=== PATIENT | male | born 2000 | race Caucasian/White ===

== ENCOUNTER 2022-12-31 21:19 | Inpatient (IN) ==
[2022-12-31 22:45] LABS: Appearance Urine Clear (Clear); Bilirubin Urine Negative (Negative); Blood Urine Negative (Negative); Color Urine Yellow; Glucose Urine UA Negative (Negative); Ketones Urine Negative (Negative); Leukocyte Esterase Urine Negative (Negative); Nitrite Urine Negative (Negative); Protein Urine Negative (Negative); Specific Gravity Urine 1.028 (1.000-1.030); Urobilinogen Urine Negative (Negative); pH Urine 6.5 (4.5-7.5)
[2022-12-31] MEDS ORDERED: KETOROLAC TROMETHAMINE 15 MG/ML VIAL IV ONE (23:05)
[2022-12-31] MEDS ORDERED: SODIUM CHLORIDE 0.9% 1000ML 1,000 ML IV ONE (23:05)
--- NOTE | 2022-12-31 23:33 | Emergency Department Note ---
Impression & Plan Hemoperitoneum, Post-operative infection ED Provider Note NAME: CHRISTIAN KASPER AGE: 22 SEX: M : 2000 ARRIVES VIA: Walk-In INFORMANT: Patient ED PROVIDER(S): Vik Morrison DO CHIEF COMPLAINT: abdominal pain HPI: Patient is a 22-year-old male who presents the ER for lower abdominal pain. He notes he had an appendectomy in [place] performed 2 weeks ago. Over the p ast 4 days he has been having abdominal pain which has been getting worse in the lower pelvic region. He notes its worse with urination. She denies any drainage or discharge. No headache or change in vision. No chest pain or shortness of breath. No other exacerbating or remitting factors. He notes some pain in his abdomen when he urinates. PAST MEDICAL HISTORY:See Below PAST SURGICAL HISTORY:See Below FAMILY HISTORY:See Below SOCIAL HISTORY:See Below HOME MEDICATIONS:See Below ALLERGIES:See Below VITALS:See Below PHYSICAL EXAMINATION: GENERAL: Sitting up in bed, alert, well appearing, well nourished, no distress, non-toxic EYE EXAM: normal conjunctiva. OROPHARYNX: no exudate, no erythema, lips, buccal mucosa, and tongue normal and mucous membranes are moist NECK: supple, no nuchal rigidity, no adenopathy, non-tender LUNGS: Clear to auscultation. Normal chest wall mechanics HEART: no murmurs, S1 normal and S2 normal ABDOMEN: abdomen soft, TTP in lower Abd, normo-active bowel sounds, no masses, no rebound or guarding. UPPER EXTREMITIES: upper extremities are grossly normal. LOWER EXTREMITIES: No pitting edema. NEURO EXAM: Normal sensorium, cranial nerves II-XII grossly intact, normal speech, no gross weakness of arms, no gross weakness of legs. MEDICAL DECISION MAKING: Patient is a 22-year-old male who presents ER for abdominal pain postop. Getting worse for the past 4 days. History of appendectomy 2 weeks ago. IV was established blood work was obtained. Labs show no significant leukocytosis. Mild anemia 12.2. BMP along with LFTs bilirubin and lipase was unremarkable. UA was negative. COVID-negative. He was given IV fluids and Zofran. He was updated bedside. He was given Zosyn following a CT abdomen pelvis which confirmed a phlegmon along with a small amount of hemoperitoneum. This was discussed with Dr. Shira Mendosa who recommended admission and admit this patient to her service. He was updated at bedside. Triage Nursing notes reviewed. Limited review of prior medical records performed Vital Signs: reviewed and remarkable for no significant abnormalities Differential diagnosis: Differential diagnoses includes but is not limited to gastritis, peptic ulcer disease, GERD, gallbladder disease, pancreatitis, small bowel obstruction, appendicitis, diverticulitis, hernia, urinary tract infection, torsion, perforation, trauma, infectious. ER treatment provided: See below Diagnostics interpreted by me include EKG and cardiac monitoring as listed below: -Cardiac Monitoring: An order was placed for continuous cardiac monitoring. The monitor shows a rate of 70 with sinus rhythm. -ECG: none -Laboratory studies:Interpreted by me as stated above in MDM and shown below. Imaging studies: Xrays: As interpreted by me:none CTs show: CT abdomen pelvis as described above Consultation(s): As described in MDM Procedures:none Critical Care: None Past Med/Surg History Medical History No pertinent past medical history Surgical History No pertinent past surgical history Social History Smoking Status: Current some day smoker Tobacco Type: E-cigarettes / Vaping Preferred Language: [place] Feels Safe at Home: Yes Allergies Allergies Allergy/AdvReac Type Severity Reaction Status Date / Time No Known Allergies Allergy Verified 12/31/22 23:05 Home Meds Home Medications Medication Instructions Recorded Confirmed acetaminophen 500 mg tablet 500 mg PO DIRECTED PRN Pain 12/31/22 12/31/22 (Tylenol Extra Strength) Results & Data (ED) Vital Signs Vital Signs - 24 hr 12/31/22 21:34 01/01/23 00:34 Temperature 36.9 C Temperature Source Temporal Artery Scan Pulse Rate 102 H Pulse Rate [Right Finger] 69 Pulse Rhythm [Right Finger] Regular Respiratory Rate 18 16 Respiratory Effort / Characteristics Non-Labored Spontaneous Non-Labored Spontaneous Respiratory Depth Normal Normal Respiratory Pattern Regular Blood Pressure 159/93 H Blood Pressure [Right Arm] 128/71 Blood Pressure Mean 115 Blood Pressure Mean [Right Arm] 90 Pulse Oximetry 100 100 Oxygen Delivery Method Room Air Room Air Sepsis Recent Fever Within 48 Hours No Sepsis New/Unexplained Change in Mental Status No Sepsis Action Taken by Nursing No Action Required Laboratory Data 12/31/22 21:39 12/31/22 21:39 Lab Results 12/31/22 12/31/22 12/31/22 Range/Units 21:34 21:39 21:39 WBC 9.46 (4.8-10.8) K/ul RBC 4.11 L (4.70-6.10) M/uL Hgb 12.2 L (14.0-18.0) g/dl Hct 37.3 L (42.0-52.0) % MCV 90.8 (80.0-100.0) fL MCH 29.7 (25.0-34.0) pg MCHC 32.7 (32.0-36.0) g/dL RDW Std Deviation 41.3 (36.4-46.3) fL RDW Coeff of Luma 12.6 (11.5-14.5) % Plt Count 352 (130-400) K/uL MPV 11.4 (9.4-12.4) fL Immature Gran % (Auto) 0.1 % Neut % (Auto) 71.7 % Lymph % (Auto) 17.3 % [place] % (Auto) 8.5 % Eos % (Auto) 1.9 % Baso % (Auto) 0.5 % Neut # (Auto) 6.78 H (1.40-6.50) K/uL Lymph # (Auto) 1.64 (1.2-3.4) K/uL [place] # (Auto) 0.80 H (0.11-0.59) K/uL Eos # (Auto) 0.18 (0-0.50) K/uL Baso # (Auto) 0.05 (0-0.2) K/uL Immature Gran # (Auto) 0.01 (0.01-0.20) K/uL Sodium 139 (136-145) mmol/L Potassium 3.7 (3.5-5.1) mmol/L Chloride 102 (98-107) mmol/L Carbon Dioxide 26 (21-32) mmol/L Anion Gap 11 (3-11) BUN 19 (6-23) mg/dl Creatinine 0.81 (0.6-1.4) mg/dl Est Cr Clr Drug Dosing 158.3 ml/min Est GFR ( Amer) 147.2 ml/min Est GFR (Non-Af Amer) 127.0 ml/min BUN/Creatinine Ratio 23.5 H (10-20) Glucose 85 (70-99(Fasting)) mg/dl Calcium 9.9 (8.6-10.3) mg/dl Total Bilirubin 0.6 (0.2-1.0) mg/dl AST 20 (13-39) U/L ALT 25 (7-52) U/L Alkaline Phosphatase 73 (34-104) U/L Total Protein 8.4 H (6.0-8.3) gm/dl Albumin 4.8 (3.4-5.0) gm/dl Globulin 3.6 (2.5-4.0) gm/dl Albumin/Globulin Ratio 1.3 (0.9-2) Lipase 12 (11-82) U/L Urine Color Yellow Urine Appearance Clear (Clear) Urine pH 6.5 (4.5-7.5) Ur Specific [place] 1.028 (1.000-1.030) Urine Protein Negative (Negative) Urine Glucose (UA) Negative (Negative) Urine Ketones Negative (Negative) Urine Blood Negative (Negative) Urine Nitrite Negative (Negative) Urine Bilirubin Negative (Negative) Urine Urobilinogen Negative (Negative) Ur Leukocyte Esterase Negative (Negative) Administered Medications Discontinued Medications Sodium Chloride (Nss 1000ml) 1,000 mls @ 999 mls/hr IV .Q1H1M ONE Stop: 01/01/23 00:05 Last Infusion: 01/01/23 00:54 Dose: 0 mls/hr Documented By: Admin: 12/31/22 23:13 Dose: 999 mls/hr Documented By: KEYA Piperacillin Sod/Tazobactam Sod (Zosyn) 4.5 gm in 120 mls @ 240 mls/hr IV NOW ONE Stop: 01/01/23 01:51 Last Admin: 01/01/23 02:07 Dose: 240 mls/hr Documented By: KEYA Ioversol (Optiray 350 100ml) 100 ml IV ONCE ONE Stop: 01/01/23 00:28 Last Admin: 01/01/23 00:27 Dose: 86 ml Documented By: ONEIL Ketorolac Tromethamine (Ketorolac Tromethamine 15 Mg/Ml Vial) 10 mg IV NOW ONE Stop: 12/31/22 23:06 Last Admin: 12/31/22 23:10 Dose: 10 mg Documented By: KEYA Imaging Data Radiologist's Impression: Abdomen/Pelvis CT 12/31/22 23:05 CR Exam(s): CT ABDOMEN + PELVIS With Contrast IV Amt: 86 ML OPTIRAY 350 EXAM: CT Abdomen and Pelvis With Intravenous Contrast CLINICAL HISTORY: Reason for exam: lower pelvic pain s/p appy. TECHNIQUE: Axial computed tomography images of the abdomen and pelvis with intravenous contrast. CTDI is 7 mGy and DLP is 378.67 mGy-cm. Automated exposure control was utilized for the study. A dose lowering technique was utilized adhering to the principles of ALARA. CONTRAST: Patient received 86 ML OPTIRAY 350 of IV contrast COMPARISON: None. FINDINGS: Lung bases: Unremarkable. No mass. No consolidation. ABDOMEN: Liver: Unremarkable. No mass. Gallbladder and bile ducts: The gallbladder is contracted. No calcified stones. No ductal dilation. Pancreas: Unremarkable. No mass. No ductal dilation. Spleen: Unremarkable. No splenomegaly. Adrenals: Unremarkable. No mass. Kidneys and ureters: Unremarkable. No solid mass. No hydronephrosis. Stomach and bowel: Unremarkable. No obstruction. No mucosal thickening. PELVIS: Appendix: No findings to suggest acute appendicitis. Bladder: Unremarkable. No mass. Reproductive: Unremarkable as visualized. ABDOMEN and PELVIS: Intraperitoneal space: There is moderate to large free fluid in the pelvis of high density suggestive of hemorrhagic versus infectious etiology. There are inflammatory/phlegmonous changes at the level of the cecum suggestive of known history of appendicitis. There are surgical clips/sutures by the cecum consistent with recent surgery. No free air. Bones/joints: No acute fracture. No dislocation. Soft tissues: Unremarkable. Vasculature: Unremarkable. No abdominal aortic aneurysm. Lymph nodes: Unremarkable. No enlarged lymph nodes. IMPRESSION: 1. Complex high density free fluid in the pelvis raising the concern of hemorrhagic fluid versus infectious process. 2. Phlegmonous change in the right lower quadrant with questionable status post appendectomy. No drainable abscess seen. Communications: Call Doctor Other Electronically signed by: Clara Olsen MD 01/01/23 01:12 AM Discharge Plan Visit Data Chief Complaint: Urinary Symptoms Stated Complaint: BURNING WHEN URINATING,CRAMPS IN STOMACH ED Provider: Vik Morrison Discharge Problem: Hemoperitoneum, Post-operative infection Forms Stand Alone Forms: My [facility] Prescriptions Prescriptions: No Action acetaminophen [Tylenol Extra Strength] 500 mg Tablet 500 mg PO DIRECTED PRN (Reason: Pain) Referrals Referrals: [facility] [Primary Care Provider] -
[2022-12-31 23:41] LABS: Basophils # (auto) 0.05 K/uL (0-0.2); Basophils % (auto) 0.5 %; Eosinophils # (auto) 0.18 K/uL (0-0.50); Eosinophils % (auto) 1.9 %; Hematocrit (blood only) 37.3 % (42.0-52.0); Hemoglobin 12.2 g/dl (14.0-18.0); Immature Granulocytes # (auto) 0.01 K/uL (0.01-0.20); Immature Granulocytes % (auto) 0.1 %; Lymphocytes # (auto) 1.64 K/uL (1.2-3.4); Lymphocytes % (auto) 17.3 %; Mean Corpuscular Hemoglobin 29.7 pg (25.0-34.0); Mean Corpuscular Hgb Conc 32.7 g/dL (32.0-36.0); Mean Corpuscular Volume 90.8 fL (80.0-100.0); Mean Platelet Volume 11.4 fL (9.4-12.4); Monocytes % (auto) 8.5 %; Neutrophils # (auto) 6.78 K/uL (1.40-6.50); Neutrophils % (auto) 71.7 %; Platelet Count 352 K/uL (130-400); RDW Coefficient of Variation 12.6 % (11.5-14.5); RDW Standard Deviation 41.3 fL (36.4-46.3); Red Blood Count 4.11 M/uL (4.70-6.10); White Blood Count 9.46 K/ul (4.8-10.8)
[2022-12-31 23:56] LABS: Albumin Globulin Ratio 1.3 (0.9-2); Albumin Level 4.8 gm/dl (3.4-5.0); BUN Creatinine Ratio 23.5 (10-20); Bilirubin,Total 0.6 mg/dl (0.2-1.0); Calcium 9.9 mg/dl (8.6-10.3); Creatinine Clr Calc Pharmacy 158.3 ml/min; Est GFR (African American) 147.2 ml/min; Globulin 3.6 gm/dl (2.5-4.0); Potassium 3.7 mmol/L (3.5-5.1); Total Protein 8.4 gm/dl (6.0-8.3)
[2023-01-01] MEDS ORDERED: OPTIRAY 350 100ml IV ONE (00:27)
--- NOTE | 2023-01-01 01:13 | CT Scan Report ---
Exam(s): CT ABDOMEN + PELVIS With Contrast IV Amt: 86 ML OPTIRAY 350 EXAM: CT Abdomen and Pelvis With Intravenous Contrast CLINICAL HISTORY: Reason for exam: lower pelvic pain s/p appy. TECHNIQUE: Axial computed tomography images of the abdomen and pelvis with intravenous contrast. CTDI is 7 mGy and DLP is 378.67 mGy-cm. Automated exposure control was utilized for the study. A dose lowering technique was utilized adhering to the principles of ALARA. CONTRAST: Patient received 86 ML OPTIRAY 350 of IV contrast COMPARISON: None. FINDINGS: Lung bases: Unremarkable. No mass. No consolidation. ABDOMEN: Liver: Unremarkable. No mass. Gallbladder and bile ducts: The gallbladder is contracted. No calcified stones. No ductal dilation. Pancreas: Unremarkable. No mass. No ductal dilation. Spleen: Unremarkable. No splenomegaly. Adrenals: Unremarkable. No mass. Kidneys and ureters: Unremarkable. No solid mass. No hydronephrosis. Stomach and bowel: Unremarkable. No obstruction. No mucosal thickening. PELVIS: Appendix: No findings to suggest acute appendicitis. Bladder: Unremarkable. No mass. Reproductive: Unremarkable as visualized. ABDOMEN and PELVIS: Intraperitoneal space: There is moderate to large free fluid in the pelvis of high density suggestive of hemorrhagic versus infectious etiology. There are inflammatory/phlegmonous changes at the level of the cecum suggestive of known history of appendicitis. There are surgical clips/sutures by the cecum consistent with recent surgery. No free air. Bones/joints: No acute fracture. No dislocation. Soft tissues: Unremarkable. Vasculature: Unremarkable. No abdominal aortic aneurysm. Lymph nodes: Unremarkable. No enlarged lymph nodes. IMPRESSION: 1. Complex high density free fluid in the pelvis raising the concern of hemorrhagic fluid versus infectious process. 2. Phlegmonous change in the right lower quadrant with questionable status post appendectomy. No drainable abscess seen. Communications: Call Doctor Other Electronically signed by: Clara Olsen MD 01/01/23 01:12 AM
[2023-01-01] MEDS ORDERED: PIPERACILLIN/TAZOBACTAM 4.5 GM/120 ML BAG IV ONE (01:22)
[2023-01-01] MEDS ORDERED: HYDROCODONE/ACETAMOPHEN 5/325MG TAB PO PRN ×2 (04:18)
[2023-01-01] MEDS ORDERED: IBUPROFEN 200 MG TAB PO PRN (04:18)
[2023-01-01] MEDS ORDERED: ONDANSETRON INJ 2 MG/ML 2 ML VIAL IV PRN (04:18)
[2023-01-01] MEDS ORDERED: MoRPHine SULFATE 2 MG/ML CARP IV PRN (04:18)
[2023-01-01] MEDS ORDERED: MoRPHine SULFATE 4 MG/ML 1 ML CARP\\VIAL IV PRN (04:18)
[2023-01-01] MEDS ORDERED: FLUARIX QUADRIVALENT 0.5 ML SYR IM ONE (04:36)
[2023-01-01] MEDS: LACTATED RINGER'S 1,000 ML IV SCH ×2 (04:40→14:51)
[2023-01-01] MEDS: PIPERACILLIN/TAZOBACTAM 3.375 GM in DEXTROSE 5% 100 ML IV SCH ×3 (09:26→23:50)
--- NOTE | 2023-01-01 10:30 | History & Physical Report ---
Date of Service January 01, 2023 Assessment & Plan (1) Post-operative infection: (2) Hemoperitoneum: Plan 22 year-old male who is 2.5 weeks s/p laparoscopic appendectomy in [place] presented to ED last evening with increasing abdominal pain for the last 4 days with no associated fevers, nausea, vomiting, changes in bowel habits. Normal wbc, afebrile, hemodynamically stable. CT scan showing phlegmonous changes of the cecum without drainable fluid collection/abscess, moderate free fluid in pelvis which could be hemoperitoneum vs infectious fluid. Abdominal exam with tenderness in the suprapubic and RLQ with no rigidity, rebound, or peritonitis Plan: Continue IV antibiotics Pain management as needed okay for low fiber diet, go slow encouraged ambulating hallway repeat am labs scds for dvt prophylaxis Dr. Le has seen and examined patient agrees with above Admission and Anticipated Discharge Date Admission Date: January 01, 2023 History of Present Illness Chief Complaint: Abdominal pain Primary Care Provider: [facility] Alec is a 22 year-old male who presented to emergency department with 4 day history of increasing abdominal pain who is currently 2.5 weeks s/p laparoscopic appendectomy in [place]. States he was admitted to hospital for 2 days following surgery and was doing well. Noticed some abdominal pain with pressure while urinating and pain continued to increase. Pain mostly with movement or urinating. Denies of any fever, chills, nausea, vomiting, abdominal bloating, difficulty urinating, blood in urine, difficulty moving bowels, constipation, diarrhea, or blood in stools. ER work-up included labs which showed no leukcoytosis. CT scan of abdomen/pelvis with IV contrast showing phlegmonous changes of the cecum with no drainable abscess and moderate fluid in pelvis which could be hemoperitoneum vs infectious etiology. No pneumoperitoneum. States he is feeling okay this morning, pain only with palpation but not pain at rest. No fevers, no nausea, vomiting. Allergies Allergy/AdvReac Type Severity Reaction Status Date / Time No Known Allergies Allergy Verified 12/31/22 23:05 Home Medications Medication Instructions Recorded Confirmed Type acetaminophen 500 mg tablet 500 mg PO DIRECTED PRN Pain 12/31/22 12/31/22 History (Tylenol Extra Strength) Past Med/Surg History Medical History (Updated 01/01/23 @ 02:20 by Vik M Morrison, DO) No pertinent past medical history Surgical History (Updated 01/01/23 @ 12:24 by Cydney Brannon PA-C) History of dental surgery History of laparoscopic appendectomy Social History Smoking Status: Never smoker Tobacco Type: E-cigarettes / Vaping Second Hand Exposure: No; Do You Dip or Chew Tobacco: No; Tobacco Cessation Education Requested by Patient: No Hx Alcohol Use: Yes Alcohol type: beer Hx Substance Use: No Preferred Language: Upper Sorbian Communication Ability: Effective Diagnostics Tech Required: No Beliefs That Will Affect Care: None Current Living Situation: Parent and Family Other Information That Helps Us Care for You: No Feels Safe at Home: Yes Safety Concerns: Feels Safe At This Time Assistive Devices: None Physical Exam Constitutional: WD/WN, vitals as above + thin, cooperative and comfortable; no acute distress and not ill appearing Neck: normal visual inspection and trachea midline Respiratory: normal respiratory effort, lungs clear to auscultation Cardiovascular: RRR, no murmur, no edema Gastrointestinal (Abdomen): Inspection/Auscultation: abdomen normal to inspection and + abdominal surgical incision (clean/dry/intact, steri strips present); abdomen not distended Percussion/Palpation: + abdomen tender (suprapubic and RLQ) and abdomen soft; no guarding, abdomen not rigid and abdomen not firm Skin: no rashes, warm and dry Psychiatric: A+Ox3, euthymic affect Results & Data Results & Data Vital Signs (Past 12 Hours) Vital Signs Temp Pulse Pulse Resp BP BP Pulse Ox 01/01/23 07:44 36.8 C 56 L 20 100/60 99 01/01/23 05:48 37.2 C 76 16 124/78 99 01/01/23 04:48 36.8 C 79 16 118/64 99 01/01/23 04:18 36.9 C 86 16 116/86 99 01/01/23 04:15 36.6 C 66 16 109/67 97 01/01/23 04:01 75 14 111/65 98 01/01/23 03:19 65 97 01/01/23 01:50 60 16 104/62 98 01/01/23 02:57 60 01/01/23 00:34 69 16 128/71 100 O2 Del Method 01/01/23 07:44 Room Air 01/01/23 05:48 Room Air 01/01/23 04:48 Room Air 01/01/23 04:18 Room Air 01/01/23 04:15 Room Air 01/01/23 04:01 Room Air 01/01/23 03:19 Room Air 01/01/23 01:50 Room Air 01/01/23 02:57 01/01/23 00:34 Room Air Laboratory Results 01/01/23 12/31/22 12/31/22 Range/Units 02:09 21:39 21:39 WBC 9.46 (4.8-10.8) K/ul RBC 4.11 L (4.70-6.10) M/uL Hgb 12.2 L (14.0-18.0) g/dl Hct 37.3 L (42.0-52.0) % MCV 90.8 (80.0-100.0) fL MCH 29.7 (25.0-34.0) pg MCHC 32.7 (32.0-36.0) g/dL RDW Std Deviation 41.3 (36.4-46.3) fL RDW Coeff of Luma 12.6 (11.5-14.5) % Plt Count 352 (130-400) K/uL MPV 11.4 (9.4-12.4) fL Immature Gran % (Auto) 0.1 % Neut % (Auto) 71.7 % Lymph % (Auto) 17.3 % [place] % (Auto) 8.5 % Eos % (Auto) 1.9 % Baso % (Auto) 0.5 % Neut # (Auto) 6.78 H (1.40-6.50) K/uL Lymph # (Auto) 1.64 (1.2-3.4) K/uL [place] # (Auto) 0.80 H (0.11-0.59) K/uL Eos # (Auto) 0.18 (0-0.50) K/uL Baso # (Auto) 0.05 (0-0.2) K/uL Immature Gran # (Auto) 0.01 (0.01-0.20) K/uL Sodium 139 (136-145) mmol/L Potassium 3.7 (3.5-5.1) mmol/L Chloride 102 (98-107) mmol/L Carbon Dioxide 26 (21-32) mmol/L Anion Gap 11 (3-11) BUN 19 (6-23) mg/dl Creatinine 0.81 (0.6-1.4) mg/dl Est Cr Clr Drug Dosing 158.3 ml/min Est GFR ( Amer) 147.2 ml/min Est GFR (Non-Af Amer) 127.0 ml/min BUN/Creatinine Ratio 23.5 H (10-20) Glucose 85 (70-99(Fasting)) mg/dl Calcium 9.9 (8.6-10.3) mg/dl Total Bilirubin 0.6 (0.2-1.0) mg/dl AST 20 (13-39) U/L ALT 25 (7-52) U/L Alkaline Phosphatase 73 (34-104) U/L Total Protein 8.4 H (6.0-8.3) gm/dl Albumin 4.8 (3.4-5.0) gm/dl Globulin 3.6 (2.5-4.0) gm/dl Albumin/Globulin Ratio 1.3 (0.9-2) Lipase 12 (11-82) U/L Urine Color Urine Appearance (Clear) Urine pH (4.5-7.5) Ur Specific [place] (1.000-1.030) Urine Protein (Negative) Urine Glucose (UA) (Negative) Urine Ketones (Negative) Urine Blood (Negative) Urine Nitrite (Negative) Urine Bilirubin (Negative) Urine Urobilinogen (Negative) Ur Leukocyte Esterase (Negative) SARS-CoV-2, RNA, NAAT NEGATIVE (NEGATIVE) 12/31/22 Range/Units 21:34 WBC (4.8-10.8) K/ul RBC (4.70-6.10) M/uL Hgb (14.0-18.0) g/dl Hct (42.0-52.0) % MCV (80.0-100.0) fL MCH (25.0-34.0) pg MCHC (32.0-36.0) g/dL RDW Std Deviation (36.4-46.3) fL RDW Coeff of [place] (11.5-14.5) % Plt Count (130-400) K/uL MPV (9.4-12.4) fL Immature Gran % (Auto) % Neut % (Auto) % Lymph % (Auto) % [place] % (Auto) % Eos % (Auto) % Baso % (Auto) % Neut # (Auto) (1.40-6.50) K/uL Lymph # (Auto) (1.2-3.4) K/uL [place] # (Auto) (0.11-0.59) K/uL Eos # (Auto) (0-0.50) K/uL Baso # (Auto) (0-0.2) K/uL Immature Gran # (Auto) (0.01-0.20) K/uL Sodium (136-145) mmol/L Potassium (3.5-5.1) mmol/L Chloride (98-107) mmol/L Carbon Dioxide (21-32) mmol/L Anion Gap (3-11) BUN (6-23) mg/dl Creatinine (0.6-1.4) mg/dl Est Cr Clr Drug Dosing ml/min Est GFR ( Amer) ml/min Est GFR (Non-Af Amer) ml/min BUN/Creatinine Ratio (10-20) Glucose (70-99(Fasting)) mg/dl Calcium (8.6-10.3) mg/dl Total Bilirubin (0.2-1.0) mg/dl AST (13-39) U/L ALT (7-52) U/L Alkaline Phosphatase (34-104) U/L Total Protein (6.0-8.3) gm/dl Albumin (3.4-5.0) gm/dl Globulin (2.5-4.0) gm/dl Albumin/Globulin Ratio (0.9-2) Lipase (11-82) U/L Urine Color Yellow Urine Appearance Clear (Clear) Urine pH 6.5 (4.5-7.5) Ur Specific [place] 1.028 (1.000-1.030) Urine Protein Negative (Negative) Urine Glucose (UA) Negative (Negative) Urine Ketones Negative (Negative) Urine Blood Negative (Negative) Urine Nitrite Negative (Negative) Urine Bilirubin Negative (Negative) Urine Urobilinogen Negative (Negative) Ur Leukocyte Esterase Negative (Negative) SARS-CoV-2, RNA, NAAT (NEGATIVE) Diagnostic Findings Exam(s): CT ABDOMEN + PELVIS With Contrast IV Amt: 86 ML OPTIRAY 350 EXAM: CT Abdomen and Pelvis With Intravenous Contrast CLINICAL HISTORY: Reason for exam: lower pelvic pain s/p appy. TECHNIQUE: Axial computed tomography images of the abdomen and pelvis with intravenous contrast. CTDI is 7 mGy and DLP is 378.67 mGy-cm. Automated exposure control was utilized for the study. A dose lowering technique was utilized adhering to the principles of ALARA. CONTRAST: Patient received 86 ML OPTIRAY 350 of IV contrast COMPARISON: None. FINDINGS: Lung bases: Unremarkable. No mass. No consolidation. ABDOMEN: Liver: Unremarkable. No mass. Gallbladder and bile ducts: The gallbladder is contracted. No calcified stones. No ductal dilation. Pancreas: Unremarkable. No mass. No ductal dilation. Spleen: Unremarkable. No splenomegaly. Adrenals: Unremarkable. No mass. Kidneys and ureters: Unremarkable. No solid mass. No hydronephrosis. Stomach and bowel: Unremarkable. No obstruction. No mucosal thickening. PELVIS: Appendix: No findings to suggest acute appendicitis. Bladder: Unremarkable. No mass. Reproductive: Unremarkable as visualized. ABDOMEN and PELVIS: Intraperitoneal space: There is moderate to large free fluid in the pelvis of high density suggestive of hemorrhagic versus infectious etiology. There are inflammatory/phlegmonous changes at the level of the cecum suggestive of known history of appendicitis. There are surgical clips/sutures by the cecum consistent with recent surgery. No free air. Bones/joints: No acute fracture. No dislocation. Soft tissues: Unremarkable. Vasculature: Unremarkable. No abdominal aortic aneurysm. Lymph nodes: Unremarkable. No enlarged lymph nodes. IMPRESSION: 1. Complex high density free fluid in the pelvis raising the concern of hemorrhagic fluid versus infectious process. 2. Phlegmonous change in the right lower quadrant with questionable status post appendectomy. No drainable abscess seen. Code Status & VTE Plan VTE Prophylaxis Plan VTE Prophylaxis will be ordered: Yes Supervising Physician Co-Signing Physician Notes I have seen and examined the patient personally and agree with the above assessment and plan. Right lower quadrant phlegmonous change without abscess 2 weeks status post laparoscopic appendectomy in [place]. We will treat him with IV antibiotics and bowel rest. We will observe for now. No surgical interventions required at this time.
[2023-01-02] MEDS: LACTATED RINGER'S 1,000 ML IV SCH ×2 (00:49→10:05)
[2023-01-02] MEDS: PIPERACILLIN/TAZOBACTAM 3.375 GM in DEXTROSE 5% 100 ML IV SCH ×2 (07:35→15:59)
[2023-01-02 07:57] LABS: Basophils # (auto) 0.04 K/uL (0-0.2); Basophils % (auto) 0.6 %; Eosinophils # (auto) 0.25 K/uL (0-0.50); Eosinophils % (auto) 3.4 %; Hematocrit (blood only) 31.5 % (42.0-52.0); Hemoglobin 10.4 g/dl (14.0-18.0); Immature Granulocytes # (auto) 0.02 K/uL (0.01-0.20); Immature Granulocytes % (auto) 0.3 %; Lymphocytes # (auto) 1.79 K/uL (1.2-3.4); Lymphocytes % (auto) 24.7 %; Mean Corpuscular Hemoglobin 29.4 pg (25.0-34.0); Mean Platelet Volume 11.2 fL (9.4-12.4); Monocytes # (auto) 0.68 K/uL (0.11-0.59); Monocytes % (auto) 9.4 %; Neutrophils # (auto) 4.48 K/uL (1.40-6.50); Neutrophils % (auto) 61.6 %; Platelet Count 269 K/uL (130-400); RDW Coefficient of Variation 12.4 % (11.5-14.5); RDW Standard Deviation 40.5 fL (36.4-46.3); Red Blood Count 3.54 M/uL (4.70-6.10); White Blood Count 7.26 K/ul (4.8-10.8)
[2023-01-02 08:18] LABS: Calcium 9.2 mg/dl (8.6-10.3); Creatinine Clr Calc Pharmacy 154.5 ml/min; Est GFR (African American) 145.8 ml/min; Est GFR (Non-African American) 125.8 ml/min; Potassium 4.2 mmol/L (3.5-5.1)
--- NOTE | 2023-01-02 11:44 | Surgery Progress Note ---
Date of Service January 02, 2023 Assessment & Plan (1) Post-operative infection: (2) Hemoperitoneum: Plan 22 year-old male who is 2.5 weeks s/p laparoscopic appendectomy in [place] presented to ED with increasing abdominal pain for 4 days with no associated fevers, nausea, vomiting, changes in bowel habits. Normal wbc, afebrile, hemodynamically stable. CT scan showing phlegmonous changes of the cecum without drainable fluid collection/abscess, moderate free fluid in pelvis which could be hemoperitoneum vs infectious fluid. Abdominal exam with tenderness in the suprapubic and RLQ with no rigidity, rebound, or peritonitis Plan: Continue IV antibiotics Pain management as needed okay for low fiber diet, go slow encouraged ambulating hallway repeat am labs scds for dvt prophylaxis [facility] surgery covering this weekend Dr. Le has seen and examined patient agrees with above Admission and Anticipated Discharge Date Admission Date: January 01, 2023 Supervising Physician Co-Signing Physician Notes I have seen and examined the patient personally and agree with the above assessment and plan. Continue IV antibiotics. He is slowly improving. Plan for switching to p.o. antibiotics and discharge home in the next day or 2. Subjective feeling about the same pain about the same No n,v tolerating diet still abdominal pressure with urinating but no burning on urination no fevers or chills ambulated hallway yesterday a few times Physical Exam Constitutional: WD/WN, vitals as above cooperative and comfortable; no acute distress, not ill appearing, not diaphoretic and not lethargic Gastrointestinal (Abdomen): Inspection/Auscultation: abdomen normal to inspection and + abdominal surgical incision (laparoscopic incisions); abdomen not distended Percussion/Palpation: + abdomen tender (RLQ and suprapubic) and abdomen soft; no guarding and abdomen not rigid Skin: no rashes, warm and dry Psychiatric: A+Ox3, euthymic affect Results & Data Vital Signs (Past 12 Hours) Vital Signs Temp Pulse Resp BP Pulse Ox O2 Del Method 01/02/23 09:20 36.7 C 61 18 98/60 L 98 Room Air Laboratory Results 01/02/23 01/02/23 Range/Units 07:24 07:24 WBC 7.26 (4.8-10.8) K/ul RBC 3.54 L (4.70-6.10) M/uL Hgb 10.4 L (14.0-18.0) g/dl Hct 31.5 L (42.0-52.0) % MCV 89.0 (80.0-100.0) fL MCH 29.4 (25.0-34.0) pg MCHC 33.0 (32.0-36.0) g/dL RDW Std Deviation 40.5 (36.4-46.3) fL RDW Coeff of Luma 12.4 (11.5-14.5) % Plt Count 269 (130-400) K/uL MPV 11.2 (9.4-12.4) fL Immature Gran % (Auto) 0.3 % Neut % (Auto) 61.6 % Lymph % (Auto) 24.7 % [place] % (Auto) 9.4 % Eos % (Auto) 3.4 % Baso % (Auto) 0.6 % Neut # (Auto) 4.48 (1.40-6.50) K/uL Lymph # (Auto) 1.79 (1.2-3.4) K/uL [place] # (Auto) 0.68 H (0.11-0.59) K/uL Eos # (Auto) 0.25 (0-0.50) K/uL Baso # (Auto) 0.04 (0-0.2) K/uL Immature Gran # (Auto) 0.02 (0.01-0.20) K/uL Sodium 139 (136-145) mmol/L Potassium 4.2 (3.5-5.1) mmol/L Chloride 105 (98-107) mmol/L Carbon Dioxide 29 (21-32) mmol/L Anion Gap 5 (3-11) BUN 10 (6-23) mg/dl Creatinine 0.83 (0.6-1.4) mg/dl Est Cr Clr Drug Dosing 154.5 ml/min Est GFR ( Amer) 145.8 ml/min Est GFR (Non-Af Amer) 125.8 ml/min BUN/Creatinine Ratio 12.0 (10-20) Glucose 90 (70-99(Fasting)) mg/dl Calcium 9.2 (8.6-10.3) mg/dl
[2023-01-02] MEDS ORDERED: ACETAMINOPHEN 325 MG TAB PO PRN (12:31)
[2023-01-03] MEDS: PIPERACILLIN/TAZOBACTAM 3.375 GM in DEXTROSE 5% 100 ML IV SCH ×2 (00:40→07:31)
[2023-01-03] MEDS: LACTATED RINGER'S 1,000 ML IV SCH (04:31)
--- NOTE | 2023-01-03 05:09 | Surgery Progress Note ---
Date of Service January 03, 2023 Assessment & Plan (1) Hemoperitoneum: Plan: Patient is status post appendectomy at a facility in [place] approximately [address] [facility] on 12/31/2022 shows a complex high density fluid collection in the pelvis raising concern for either hemorrhagic fluid or an infectious process along with phlegmonous changes in the right lower quadrant. Continue diet as tolerated Continue analgesics as needed Continue antibiotics in the form of Zosyn Check a.m. labs when available Admission and Anticipated Discharge Date Admission Date: January 02, 2023 Supervising Physician Co-Signing Physician Notes pnt S&E, agree with above. h/o appy in [place], admitted for pain and fluid collection. feeling better, still some pressure when urinating. wbc normal, hct stable. d/c to home, oral abx, f/u with dr. coronel. Subjective Patient is resting comfortably in bed. He denies significant abdominal pain. He denies any fevers, shakes, or chills. He is tolerating solid food without worsening abdominal pain. He says he has moved his bowels and is passing flatus since arrival to the hospital. He denies any nausea or vomiting. Physical Exam Gastrointestinal (Abdomen): Abdomen is soft and nonrigid. It is nondistended with minimal pain to palpation. His surgical incisions are clean, dry, intact Results & Data Vital Signs (Past 12 Hours) Vital Signs Temp Pulse Resp BP Pulse Ox O2 Del Method 01/02/23 20:00 36.6 C 65 16 94/57 L 99 Room Air PG Care Time/CCT Total # of Minutes Spent Total Time Spent with Patient: Total time spent is greater than 50% in coordination of care (as documented) at patient's floor/unit and/or counseling patient: Coding Level of Care Code 97205 SUB INP/OBS CARE 11/05MIN Diagnoses Hemoperitoneum K66.1
[2023-01-03 06:42] LABS: Basophils # (auto) 0.05 K/uL (0-0.2); Basophils % (auto) 0.7 %; Eosinophils # (auto) 0.23 K/uL (0-0.50); Eosinophils % (auto) 3.3 %; Hematocrit (blood only) 33.1 % (42.0-52.0); Hemoglobin 10.8 g/dl (14.0-18.0); Immature Granulocytes # (auto) 0.02 K/uL (0.01-0.20); Immature Granulocytes % (auto) 0.3 %; Lymphocytes # (auto) 1.65 K/uL (1.2-3.4); Lymphocytes % (auto) 23.7 %; Mean Corpuscular Hemoglobin 29.5 pg (25.0-34.0); Mean Corpuscular Hgb Conc 32.6 g/dL (32.0-36.0); Mean Corpuscular Volume 90.4 fL (80.0-100.0); Mean Platelet Volume 11.2 fL (9.4-12.4); Monocytes # (auto) 0.74 K/uL (0.11-0.59); Monocytes % (auto) 10.6 %; Neutrophils # (auto) 4.27 K/uL (1.40-6.50); Neutrophils % (auto) 61.4 %; Platelet Count 300 K/uL (130-400); RDW Coefficient of Variation 12.5 % (11.5-14.5); RDW Standard Deviation 40.9 fL (36.4-46.3); Red Blood Count 3.66 M/uL (4.70-6.10); White Blood Count 6.96 K/ul (4.8-10.8)
--- NOTE | 2023-01-06 12:16 | Discharge Summary ---
Date of Service January 06, 2023 Admission HPI Per Admitting Provider Alec is a 22 year-old male who presented to emergency department with 4 day history of increasing abdominal pain who is currently 2.5 weeks s/p laparoscopic appendectomy in [place]. States he was admitted to hospital for 2 days following surgery and was doing well. Noticed some abdominal pain with pressure while urinating and pain continued to increase. Pain mostly with movement or urinating. Denies of any fever, chills, nausea, vomiting, abdominal bloating, difficulty urinating, blood in urine, difficulty moving bowels, constipation, diarrhea, or blood in stools. ER work-up included labs which showed no leukcoytosis. CT scan of abdomen/pelvis with IV contrast showing phlegmonous changes of the cecum with no drainable abscess and moderate fluid in pelvis which could be hemoperitoneum vs infectious etiology. No pneumoperitoneum. States he is feeling okay this morning, pain only with palpation but not pain at rest. No fevers, no nausea, vomiting. Principal Diagnosis intra-abdominal infection s/p laparoscopic appendectomy Discharge Data Allergies Allergy/AdvReac Type Severity Reaction Status Date / Time No Known Allergies Allergy Verified 12/31/22 23:05 Consultations 01/01/23 01:22 ED Decision to Admit Stat Ordered Studies 12/31/22 23:05 CT abd pelvis IV con only Stat Hospital Course (1) Post-operative infection: (2) Hemoperitoneum: Plan Patient was admitted to [facility] and placed on IV Zosyn, pain management as needed, IV antiemetics as needed, activity as tolerated, and SCds for dvt prophylaxis. Patients diet was slowly advanced to low fiber diet on day of admission. He was kept on IV Zosyn fo three days. Throughout his stay his wbc was normal and hemoglobin was stable. His pain was minimal and continued to improve. He had some pressure with urination but UA was clean and no dysuria. He was discharged home on oral antibiotics for 7 days on hospital day # 3 in stable condition. Total Time Total Time Spent Total Time Spent (In Minutes): 30 minutes Total Time Includes: Examination of the Patient, Discharge Planning, Medication Reconciliation and Communication With Other Providers Discharge Plan Discharge Items Patient Disposition: Home - Self-Care Reason For Visit: INTRA-ABDOMINAL INFECTION Discharge Diagnosis: s/p laparoscopic appendectomy phlegmonous changes of the cecum and fluid in the pelvis Activity: Per Instructions section Lifting: No more than 25 pounds Lifting Comment: for 2 weeks Bathing: No limitations Sexual Activity: After one week Exercise/Sports: Wait until after follow-up appointment Non-emergency contact: Primary Care Provider and Surgeon Call non-emergency contact if: you have any medication questions, your pain is not controlled, your pain is worsening, your pain is concerning for you, you have a fever, your temperature is above 101, your wound has increased redness, your wound has increased drainage and your wound pain has increased Follow-up/Referrals: Cydney Brannon PA-C [Physician Gaming Cage Worker] - (1-2 weeks) [facility] [Primary Care Provider] - Diet: Regular Addtl Attending Provider Instructions: Take antibiotics as prescribed for total course May alternate extra strength Tylenol and Ibuprofen as needed for mild to moderate pain -650 mg Tylenol every 6 hours as needed -600 mg Ibuprofen every 6 hours as needed (take with food) Addtl Control Tower Operator Provider Instructions: Begin your antibiotic listed below the evening of 01/03/23 Pending Studies at Discharge: No Stand-Alone Forms: [facility], Work/School Release, Smoking Cessation Medications and DC Order Prescriptions: New amoxicillin-pot clavulanate 875-125 mg tablet 1 tab PO BID Qty: 14 0RF Continued acetaminophen [Tylenol Extra Strength] 500 mg Tablet 500 mg PO DIRECTED PRN (Reason: Pain) Discharge Orders: Discharge Order (Routine); Ordered 01/03/23 Ordered By: Bob Franks Admission Data Admit Date/Time: 01/02/23 11:30 Attending Provider: Flex Le Admit Provider: Shira Mendosa Primary Care Provider: [facility] Other Providers: Shira Mendosa Other Interventions: Discharge Summary Assessment (RN) Last Done: 01/03/23 09:22
== END 2023-01-03 12:37 | disposition home or self-care (01) | DRG 862 ==
LOC: ED 21:19 → 3N 21:19
DX: K66.1 Hemoperitoneum; T81.40XA Infection following a procedure, unspecified, initial encounter